=== PATIENT | male | born 1940 | race Caucasian/White ===

== ENCOUNTER 2024-05-28 17:38 | Inpatient (IN) | payer MEDICARE, MEDICAID, SELFPAY ==
[2024-05-28 18:15] VITALS: BP 119/76; PULSE 72; RESP 16; TEMP 36.4; O2SAT 95
--- OUTSIDE RECORDS SUMMARY | 2024-05-28 18:18 | XMS_ITS | Patient Health Record ---
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 Name Role Phone Richard Johnnie Primary Care Provider Alee Melara MD MSc, Mary Unavailable [phone] Allergies Allergen (clinical drug ingredient) Drug/Non Drug Allergy documented on EMR Reaction Allergy Type Onset Date Status amoxicillin Amoxicillin Unknown Drug Allergy Act keri Reason For Referral No Information Medications Medication SIG (Take, Route, Frequency, Duration) Notes Start Date End Date Status Methadone HCl 10 MG 1 tablet Orally Once a day Not-Taking Diclofenac Sodium 1 % as directed Externally Active Baby Aspirin Active Cyanocobalamin 1000 MCG 1 tablet Orally Once a day for 30 day(s) Not-Taking Tylenol Extra Strength 500 MG 1 tablet as needed Orally every 6 hrs Not-Taking Lidocaine 5 % 1 patch remove after 12 hours Externally Once a day Not-Taking Metoprolol Succinate 50 MG 1 capsule Ora lly Once a day for 30 day(s) Active Omeprazole 40 MG 1 capsule 30 minutes before morning meal Orally Once a day for 30 day(s) Active Lovastatin 40 MG 1 tablet with the evening meal Orally Once a day for 30 day(s) Active Meclizine HCl 25 MG 1 tablet as needed Orally every 12 hrs Active oxyCODONE-Acetaminophen 5-325 MG 1 tablet as needed Orally every 6 hrs Active traZODone HCl 100 MG 1 tablet at bedtime Orally Once a day for 30 day(s) Active Valsartan 80 MG 1 tablet Orally Once a day for 30 day(s) Active Social History Alcohol screen Question Answer Notes Did you have a drink containing alcohol in the p ast year? Yes How often did you have a dri nk containing alcohol in the past year? Monthly or less How many drinks did you have on a typical day when you were drinking in the past year? 1 or 2 How often did you have six o r more drinks on one occasion in the past year? Never Points 1 Interpretation Negative Drug Question Answer Notes Have you used drugs other th an those for medical reasons in the past 12 months? Yes Marijuana 6 months ago Problems Problem Type SNOMED Code ICD Code Onset Dates Problem Status W/U Status Risk Notes Problem [id number] Lumbar radiculopathy, chronic (M54.16) Active confirmed Plan Of Treatment Pending Test Test Name Order Date [facility] Profile 02/18/2022 Insurance Providers Payer Name Payer Address Payer Phone Subscriber Number Group Number Insured Name Patient Relationship to Insured Coverage Start Date Coverage End Date MEDICARE NGS [address] [place] [phone] [id number] Lei Betancur Self - patient is the insured [facility] [address] [place], [place] [id number] [phone] [id number] Lei Betancur Self - patient is the insured Medical (General) History Medical History History ICD Code hypertension GERD without esophagitis Hyperlipidemia Prostate cancer chronic bilateral low back pain without sciatica stenosis of carotid artery abdominal aortic aneurysm without ruptur e opioid use gait abnormality B12 deficiency stage 3 chronic kidney disease iron deficiency anemia chronic obstructive pulmonary disease spinal stenosis of lumbar region without neurogenic claudication chronic pain syndrome Surgical History Surgery Date(Month/Year) Nose blockage surgery 2020 Right knee replacement 2012 Left thumb tendon surgery Hospitalization History Reason Date(Month/Year) Catheter placement 02/03/22 Pain medication 01/2022
--- NOTE | 2024-05-28 18:49 | PC.ADMIT ---
Lei was admitted to on 05/28/24 at 18:00 from [facility] ED on a 12B for the treatment of dementia with behavioral disturbance. Upon arrival, skin check/contraband search was completed by this information writer and another RN. He denies suicidal and homicidal thoughts and intent. He is oriented to self and location. He was placed on 5 minute checks for safety and is using a walker for ambulation.
[2024-05-28 19:24] LABS: Alanine Aminotransferase 12 U/L (0-40); Albumin Level 3.9 g/dL (3.5-5.0); Alkaline Phosphatase 98 U/L (39-117); Anion Gap 14 (12-20); Aspartate Amino Transferase 20 U/L (5-37); Bilirubin Total 0.4 mg/dL (0.0-1.0); Blood Urea Nitrogen 14 mg/dL (9-16); Calcium 9.1 mg/dL (8.4-10.2); Carbon Dioxide 30 mmol/L (22-29); Chloride 101 mmol/L (96-108); Estimated Glomerular Filt Rate > 60; Glucose Random 72 mg/dL (60-115); Potassium 4.5 mmol/L (3.3-5.1); Sodium 140 mmol/L (135-145); Total Protein 7.3 g/dL (6.5-8.0)
[2024-05-28] MEDS: Melatonin 3 MG TABLET 6 MG PO (20:46)
[2024-05-29] MEDS: traZODone HCL 50 MG TABLET PO (00:16)
[2024-05-29 08:38] VITALS: BP 137/66; PULSE 67; RESP 16; TEMP 37; O2SAT 95
[2024-05-29] MEDS: Furosemide 20 MG TABLET PO ×2 (08:40→20:04)
[2024-05-29] MEDS: DULoxetine HCl 20 MG CAPSULE.DR PO ×2 (08:40→20:03)
[2024-05-29] MEDS: Lidocaine 4 % Patch ADH..PATCH 1 PATCH TRANSDERMA (08:40)
[2024-05-29] MEDS: Ferrous Sulfate 324 MG TABLET.DR PO (08:40)
[2024-05-29] MEDS: Divalproex Sodium Sprinkles 125 MG CAP.DR.SPR 250 MG PO ×2 (08:40→20:04)
[2024-05-29] MEDS: Tamsulosin HCL 0.4 MG CAPSULE PO (08:40)
[2024-05-29] MEDS: clonazePAM 0.5 MG TABLET PO ×2 (08:41→20:03)
[2024-05-29] MEDS: polyethylene glycoL 3350 17 GM POWD.PACK PO (08:41)
[2024-05-29 08:47] LABS: Estimated Average Glucose 105 mg/dL; Hemoglobin A1C 113.6444 umol/L; Hemoglobin A1c % 5.3 % (<6.0); Total Hemoglobin (HGBA1C) 3272.4593 umol/L
[2024-05-29 09:00] LABS: Cholesterol 132 mg/dL (<200); HDL Cholesterol 24 mg/dL (>40); LDL Cholesterol Calculated 84 mg/dL (<100); Triglycerides 124 mg/dL (<150)
--- NOTE | 2024-05-29 09:03 | P.HPPS_ITS ---
HPI Date of Service: 05/29/24 Chief Complaint: Major neurocognitive d/o Sources of Information: patient interviewed, chart reviewed and crisis/core team assessment reviewed Additional Sources of Information: Earline Whiting [phone] [facility] internet e commerce specialist [phone] [facility] Subjective Notes: Avitia Warning and Section 12B Narrative: Mr. Betancur is an 83 year-old male with hx of dementia who resides at [facility] since 06/2024 (according to his daughter). He was sent via EMS to [facility] ED due to patient presenting with increased inappropriate behaviors towards female residents including attempting to touch them inappropriately. In the ED, labs included CBC with macrocytic anemia (note B12 818), no leukocytosis or leukopenia. CMP without electrolyte abnormality, BUN 14, Cr 1.25, creatinine clearance 57, LFT wnl. TSH 2.87. Folate 22.9. UA was negative for UTI. On the unit, pt reports he knows he is at [facility]. He does not know why he is here. He initially reported he lives alone with one of his sons living close by. When this display card writer mentioned [facility], he did report he was brought here from [facility], but again did not know why. He does know the year, month and date. He is not able to tell this display card writer his medical conditions nor the medications he is on. He denies depression or anxious mood. He denies SI/HI. No signs of psychosis or delusions. He reports he has a headache and neck pain. He denies any other concerns. He is able to tell this display card writer that his HCP is his daughter, Earline (awaiting copy of HCP from [facility] as it was not sent from ED). Collateral information was gathered from his daughter Earline who reports he was diagnosed with dementia last year around February. She reports he had put smoke detector in microwave and seemed more confused and forgetful. She reports he was admitted to a geriatric unit in [place] and ultimately dx with frontotemporal dementia and was placed at [facility]. He apparently has been stable up until this admission. Daughter reports he does not have hx of psychiatric illness. She also denies he had hx of substance use. No prior suicide attempts nor violent behavior. Past Psychiatric History: Inpt: [facility] 02/2023 OP: [address] Medical Evaluation Reviewed: Yes PMFSH Family History: none Social History: Pt originally from [place]. He was twice. He had 3 children from first marriage. He had 2 children second marriage. Second , he does not know when. 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 Highest grade of education- HS. Substance History: None Trauma History: None disclosed. Diagnostics Vital Signs (24Hr): Vital Signs - 24 hr 05/28/24 18:15 05/29/24 08:38 Temperature 97.5 F 98.6 F Pulse Rate 72 67 Respiratory Rate 16 16 Blood Pressure 119/76 137/66 Pulse Oximetry 95 95 Oxygen Delivery Method Room Air Room Air Labs 05/28/24 18:33 Labs: Laboratory Results - last 48 hr 05/28/24 05/29/24 18:33 07:49 Sodium 140 Potassium 4.5 Chloride 101 Carbon Dioxide 30 H Anion Gap 14 BUN 14 Creatinine 1.11 Estim Creat Clear Calc TNP Estimated GFR > 60 Random Glucose 72 Estimat Average Glucose 105 Hemoglobin A1c % 5.3 Calcium 9.1 Total Bilirubin 0.4 AST 20 ALT 12 Alkaline Phosphatase 98 Total Protein 7.3 Albumin 3.9 Triglycerides 124 Cholesterol 132 LDL Cholesterol, Calc 84 HDL Cholesterol 24 L Meds/Allergies Meds Home Medications ?Medication ?Instructions ?Recorded ?Confirmed ?Type atorvastatin 10 mg tablet 10 mg PO BEDTIME 05/28/24 05/28/24 History clonazepam 0.5 mg tablet 0.5 mg PO BID 05/28/24 05/28/24 History divalproex 125 mg capsule,delayed 250 mg PO BID 05/28/24 05/28/24 History release sprinkle (Depakote Sprinkles) duloxetine 20 mg capsule,delayed 20 mg PO BID 05/28/24 05/28/24 History release enoxaparin 40 mg/0.4 mL 40 mg subcut DAILY 05/28/24 05/28/24 History subcutaneous syringe ferrous sulfate 325 mg (65 mg 325 mg PO DAILY 05/28/24 05/28/24 History iron) tablet furosemide 20 mg tablet 20 mg PO BID 05/28/24 05/28/24 History gabapentin 300 mg capsule 600 mg PO BID 05/28/24 05/28/24 History gabapentin 400 mg capsule 800 mg PO BEDTIME 05/28/24 05/28/24 History lidocaine 5 % topical patch 1 patch topical DAILY 05/28/24 05/28/24 History melatonin 3 mg tablet 6 mg PO BEDTIME 05/28/24 05/28/24 History pantoprazole 20 mg tablet,delayed 20 mg PO DAILY 05/28/24 05/28/24 History release polyethylene glycol 3350 17 gram 17 g PO DAILY 05/28/24 05/28/24 History oral powder packet sennosides 8.6 mg tablet (senna) 17.2 mg PO BEDTIME 05/28/24 05/28/24 History tamsulosin 0.4 mg capsule 0.4 mg PO DAILY 05/28/24 05/28/24 History trazodone 50 mg tablet 50 mg PO BEDTIME 05/28/24 05/28/24 History Allergies Allergies Allergy/AdvReac Type Severity Reaction Status Date / Time Unable to Assess Allergy Verified 05/28/24 18:02 Mental Status Exam Mental Status Exam Narrative: Appearance: wearing hospital gown, fair hygiene, arms with tatooes, in NAD Behavior: cooperative Psychomotor: no agitation or retardation, no tremors Speech: mostly clear, normal rate/rhythm/volume, spontaneous TP: mostly linear TC: feeling tired Mood: tired, I have a headache Affect: congruent SI: denies HI: denies VH/AH: none Delusions: none Insight/judgment: impaired x 2. Memory/cog: alert, oriented to month, year, date, but not situation. He can't provide much information about events leading to this admission, nor medical hx. Assessment & Plan Assessment & Plan (1) Frontotemporal dementia: Status: Acute Code(s): G31.09 - Other frontotemporal neurocognitive disorder; F02.80 - Dementia in other diseases classified elsewhere, unspecified severity, without behavioral disturbance, psychotic disturbance, mood disturbance, and anxiety Plan Mr. Betancur is an 83 year-old male with hx of frontotemporal dementia who resides at [facility] in [facility] since 06/2023. He was sent via EMS to [facility] due to increase inappropriate behaviors and boundaries with female residents. Apparently this behaviors have been increasing in the last week. Discussed with daughter continuing medication including depakote, clonazepam. WIll check ammonia level. This display card writer spoke with floor director at [facility] and asked them to fax copy of HCP and [facility]OL[facility]- to update our records. PLAN 1. Admit to S1, currently on sect 12b, once we receive copy of HCP, will do CV by HCP. 2. continue depakote 250mg po BID, will check ammonia. 3. continue clonazepam 0.5mg po BID 4. aftercare planning. 5. OT assessments. Patient educated on: diagnosis and medication risk/benefits Guardian/Caregiver educated on: diagnosis and medication risk/benefits Informed Consent: understands Reason for continued inpatient stay Substantial Risk for: harm to others Statement Statement: I have reviewed the history and physical and performed a pertinent examination on my patient. No changes have occurred unless specified. If the History and Physical was not performed prior to admission, the Hospitalist's service will be consulted for completing the admission physical. Time Spent With Patient Time: Total time managing care of this patient today ____ minutes.
[2024-05-29 09:12] LABS: Thyroid Stimulating Hormone 1.88 uIU/mL (0.32-4.0)
[2024-05-29 09:22] LABS: Vitamin B12 761 pg/mL (200-900)
--- NOTE | 2024-05-29 12:34 | P.CONHOSP_ITS ---
History of Present Illness Data of Consult Service Date: 05/29/24 Requesting physician: Ana Paula Adair Primary Care Provider: Johnnie Ramos MD HPI Reason for consult: Medical H&P 83-year-old male with history of chronic pain disorder, coronary artery disease, GERD, hyperlipidemia, hypertension, history of polio affecting the left foot, history of prostate cancer, history of CVA, orthostatic hypotension and AAA admitted to [facility] from [facility] ED with consult placed to hospitalist service for medical H&P. He is currently feeling well and has no complaints. He is a former smoker with a 120 pack year history who quit in 2011. No other substances. Mildly hypertensive in the ED otherwise vitals stable. Labs in the ED show a mild normocytic anemia with h/h 12.4/38.1%. Renal function normal, lytes normal. UA without evidence of infection. TSH WNL. Review of Systems 2 Review of Systems: General: No fevers, malaise, unintentional weight loss HEENT: No blurred vision, diplopia. 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 Vitamin B12 deficiency Orthostatic hypotension Bilateral lower extremity edema AAA (abdominal aortic aneurysm) GERD (gastroesophageal reflux disease) Prostate cancer Hyperlipidemia Hypertension Vertigo Social History Household Members: None Housing: Prison Do you presently have visiting nurse or other home services: No Patient Tobacco Use Status: Former Tobacco user Tobacco use type: Cigarette Cigarette Packs Per Day: 2 Cigarettes Per Day: 40.0 Years Smoked: 60 Smoked in Last 30 Days: No Use of substances other than those prescribed or required for medical reasons: No Currently Displaying Signs/Symptoms of Drug Intoxication Withdrawal: No Advance Directives: No Advance Directives Information Provided: Yes Do you have thoughts of harming others: None Do you have a plan to hurt others: No Plan Recently lost weight without trying: No Meds Allergies Allergy/AdvReac Type Severity Reaction Status Date / Time Unable to Assess Allergy Verified 05/28/24 18:02 Active Medications: Current Medications Acetaminophen (Acetaminophen 325 Mg Tablet) 650 mg PO Q6H PRN PRN Reason: Headache/Pain, Scale 1-10 Al Hydroxide/Mg Hydroxide (Magnesium Hydrox/Alum Hydrox 30 Ml Oral.Susp) 30 ml PO Q6H PRN PRN Reason: Heartburn/Nausea Atorvastatin Calcium (Atorvastatin Calcium 10 Mg Tablet) 10 mg PO BEDTIME [facility] Last Admin: 05/28/24 20:50 Dose: Not Given Clonazepam (Clonazepam 0.5 Mg Tablet) 0.5 mg PO BID [facility] Last Admin: 05/29/24 08:41 Dose: 0.5 mg Divalproex Sodium (Divalproex Sodium Sprinkles 125 Mg Cap.) 250 mg PO BID [facility] Last Admin: 05/29/24 08:40 Dose: 250 mg Duloxetine HCl (Duloxetine Hcl 20 Mg Capsule.) 20 mg PO BID [facility] Last Admin: 05/29/24 08:40 Dose: 20 mg Ferrous Sulfate (Ferrous Sulfate 324 Mg Tablet.) 324 mg PO DAILY [facility] Last Admin: 05/29/24 08:40 Dose: 324 mg Furosemide (Furosemide 20 Mg Tablet) 20 mg PO BID [facility]; Protocol Last Admin: 05/29/24 08:40 Dose: 20 mg Gabapentin (Gabapentin 400 Mg Capsule) 800 mg PO BEDTIME [facility] Last Admin: 05/28/24 20:51 Dose: Not Given Lidocaine (Lidocaine 4 % Patch Adh..Patch) 1 patch TRANSDERMA DAILY [facility] Last Admin: 05/29/24 08:40 Dose: 1 patch Magnesium Hydroxide (Milk Of Magnesia 30 Ml Oral.Susp) 30 ml PO DAILY PRN PRN Reason: Constipation Melatonin (Melatonin 3 Mg Tablet) 6 mg PO BEDTIME [facility] Last Admin: 05/28/24 20:46 Dose: 6 mg Nicotine Polacrilex (Nicotine Polacrilex 2 Mg Gum) 2 mg BUCCAL Q2H PRN PRN Reason: Nicotine Cravings Polyethylene Glycol (Polyethylene Glycol 3350 17 Gm Powd.Pack) 17 gm PO DAILY [facility] Last Admin: 05/29/24 08:41 Dose: 17 gm Senna (Sennosides 8.6 Mg Tablet) 17.2 mg PO BEDTIME [facility] Last Admin: 05/28/24 20:51 Dose: Not Given Tamsulosin HCl (Tamsulosin Hcl 0.4 Mg Capsule) 0.4 mg PO DAILY [facility] Last Admin: 05/29/24 08:40 Dose: 0.4 mg Trazodone HCl (Trazodone Hcl 50 Mg Tablet) 50 mg PO BEDTIME MRX1 PRN PRN Reason: Insomnia Last Admin: 05/29/24 00:16 Dose: 50 mg Home Medications ?Medication ?Instructions ?Recorded ?Confirmed ?Last Taken ?Type atorvastatin 10 mg tablet 10 mg PO BEDTIME 05/28/24 05/28/24 Unknown History clonazepam 0.5 mg tablet 0.5 mg PO BID 05/28/24 05/28/24 Unknown History divalproex 125 mg capsule,delayed 250 mg PO BID 05/28/24 05/28/24 Unknown History release sprinkle (Depakote Sprinkles) duloxetine 20 mg capsule,delayed 20 mg PO BID 05/28/24 05/28/24 Unknown History release enoxaparin 40 mg/0.4 mL 40 mg subcut DAILY 05/28/24 05/28/24 Unknown History subcutaneous syringe ferrous sulfate 325 mg (65 mg 325 mg PO DAILY 05/28/24 05/28/24 Unknown History iron) tablet furosemide 20 mg tablet 20 mg PO BID 05/28/24 05/28/24 Unknown History gabapentin 300 mg capsule 600 mg PO BID 05/28/24 05/28/24 Unknown History gabapentin 400 mg capsule 800 mg PO BEDTIME 05/28/24 05/28/24 Unknown History lidocaine 5 % topical patch 1 patch topical DAILY 05/28/24 05/28/24 Unknown History melatonin 3 mg tablet 6 mg PO BEDTIME 05/28/24 05/28/24 Unknown History pantoprazole 20 mg tablet,delayed 20 mg PO DAILY 05/28/24 05/28/24 Unknown History release polyethylene glycol 3350 17 gram 17 g PO DAILY 05/28/24 05/28/24 Unknown History oral powder packet sennosides 8.6 mg tablet (senna) 17.2 mg PO BEDTIME 05/28/24 05/28/24 Unknown History tamsulosin 0.4 mg capsule 0.4 mg PO DAILY 05/28/24 05/28/24 Unknown History trazodone 50 mg tablet 50 mg PO BEDTIME 05/28/24 05/28/24 Unknown History Physical Exam 2 Vital Signs and Narrative: Vital Signs: Last Vital Signs Temp 98.6 F 05/29/24 08:38 Pulse 67 05/29/24 08:38 Resp 16 05/29/24 08:38 BP 137/66 05/29/24 08:38 Pulse Ox 95 05/29/24 08:38 O2 Del Method Room Air 05/29/24 08:38 Constitutional - Awake and Alert, No apparent distress Eyes - PERRLA, EOMI Cardiovascular - S1S2, RRR, No edema Respiratory - Normal lung expansion, Normal respiratory effort, No respiratory distress, CTA bilaterally Gastrointestinal - NT / ND; +BS; No rebound or guarding Extremities - no calf tenderness bilaterally, no swelling Musculoskeletal - Normal inspection, normal ROM Skin - Warm/Dry Neurological - Alert & oriented x3, CN II-XII in tact, 5/5 strength BUE and BLE Psychological - Appropriate affect Results Labs 05/28/24 18:33 Labs: Laboratory Results - last 24 hr 05/28/24 05/29/24 18:33 07:49 Anion Gap 14 Estim Creat Clear Calc TNP Estimated GFR > 60 Random Glucose 72 Estimat Average Glucose 105 Hemoglobin A1c % 5.3 Calcium 9.1 Total Bilirubin 0.4 AST 20 ALT 12 Alkaline Phosphatase 98 Total Protein 7.3 Albumin 3.9 Triglycerides 124 Cholesterol 132 LDL Cholesterol, Calc 84 HDL Cholesterol 24 L Vitamin B12 761 TSH 1.88 Assessment and Plan (1) Frontotemporal dementia: Status: Acute (2) Routine medical exam: Status: Acute Plan 83-year-old male with history of chronic pain disorder, coronary artery disease, GERD, hyperlipidemia, hypertension, history of polio affecting the left foot, history of prostate cancer, history of CVA, orthostatic hypotension and AAA admitted to [facility] from [facility] ED with consult placed to hospitalist service for medical H&P. Frontotemporal Dementia Plan per psychiatry BLE edema lasix gerd ppi bph flomax chronic pain disorder gabapentin hld statin PRIMITIVO ferrous sulfate Thank you for allowing me to participate in this consult. Signing off at this time. Please do not hesitate to call for further questions.
[2024-05-29 13:08] LABS: Ammonia 33 umol/L (13-55)
[2024-05-29 20:01] VITALS: BP 151/68; PULSE 73; RESP 16; TEMP 36.9; O2SAT 94
[2024-05-29] MEDS: Gabapentin 400 MG CAPSULE 800 MG PO (20:03)
[2024-05-29 20:04] VITALS: BP 151/68
[2024-05-29] MEDS: Atorvastatin Calcium 10 MG TABLET PO (20:04)
[2024-05-29] MEDS: Melatonin 3 MG TABLET 6 MG PO (20:04)
[2024-05-29] MEDS: Sennosides 8.6 MG TABLET 17.2 MG PO (20:04)
[2024-05-30 06:22] VITALS: BMI 26.9
[2024-05-30 07:57] VITALS: BP 134/64; PULSE 70; RESP 20; TEMP 36.8; O2SAT 96
[2024-05-30] MEDS: clonazePAM 0.5 MG TABLET PO ×2 (07:58→20:23)
[2024-05-30] MEDS: DULoxetine HCl 20 MG CAPSULE.DR PO ×2 (07:58→20:23)
[2024-05-30] MEDS: Divalproex Sodium Sprinkles 125 MG CAP.DR.SPR 250 MG PO ×2 (07:59→20:23)
[2024-05-30] MEDS: Tamsulosin HCL 0.4 MG CAPSULE PO (07:59)
[2024-05-30] MEDS: Furosemide 20 MG TABLET PO ×2 (07:59→20:24)
[2024-05-30] MEDS: Ferrous Sulfate 324 MG TABLET.DR PO (08:00)
[2024-05-30] MEDS: polyethylene glycoL 3350 17 GM POWD.PACK PO (08:05)
[2024-05-30] MEDS: Lidocaine 4 % Patch ADH..PATCH 1 PATCH TRANSDERMA (09:06)
[2024-05-30] MEDS: Acetaminophen 325 MG TABLET 650 MG PO ×2 (09:51→20:43)
--- NOTE | 2024-05-30 13:18 | HO.PSYCHPN ---
Subjective Subjective Date of Service: 05/30/24 Reason For Visit: Major neurocognitive d/o Subjective Notes: Conditional Voluntary Interim History: Pt slept through the night. He reports feeling well. He is taking medications as prescribed. No sexualized nor inappropriate behaviors noted. No SI/HI. He has been mostly in his room, visible for meals. Review of Systems Review of Systems General: No fevers, malaise, unintentional weight loss HEENT: No blurred vision, diplopia. No sore throat, nasal congestion, rhinorrhea, sinus pain, ear pain Cardiovascular: No chest pain, palpitations, or leg edema Respiratory: No shortness of breath, wheezing, cough GI: No abdominal pain, nausea, vomiting, diarrhea, constipation, melena, hematochezia : No dysuria, hematuria, increased urinary frequency, decreased urinary output MSK: No myalgia, back pain Neuro: No headaches, weakness, paresthesias Skin: No rashes or lesions Mental Status Exam Mental Status Exam Narrative: Appearance: wearing hospital gown, fair hygiene, arms with tatooes, in NAD Behavior: cooperative Psychomotor: no agitation or retardation, no tremors Speech: mostly clear, normal rate/rhythm/volume, spontaneous TP: mostly linear TC: feeling tired Mood: tired, I have a headache Affect: congruent SI: denies HI: denies VH/AH: none Delusions: none Insight/judgment: impaired x 2. Memory/cog: alert, oriented to month, year, date, but not situation. He can't provide much information about events leading to this admission, nor medical hx. Diagnostics Vital Signs (24Hr): Vital Signs - 24 hr 05/29/24 20:01 05/29/24 20:04 05/30/24 07:57 Temperature 98.4 F 98.2 F Pulse Rate 73 70 Respiratory Rate 16 20 Blood Pressure 151/68 H 151/68 H 134/64 Pulse Oximetry 94 96 Oxygen Delivery Method Room Air Room Air BMI result Body Mass Index 26.9 Labs 05/28/24 18:33 Labs: Laboratory Results - last 48 hr 05/28/24 05/29/24 05/29/24 18:33 07:49 12:25 Sodium 140 Potassium 4.5 Chloride 101 Carbon Dioxide 30 H Anion Gap 14 BUN 14 Creatinine 1.11 Estim Creat Clear Calc TNP Estimated GFR > 60 Random Glucose 72 Estimat Average Glucose 105 Hemoglobin A1c % 5.3 Calcium 9.1 Total Bilirubin 0.4 AST 20 ALT 12 Alkaline Phosphatase 98 Ammonia 33 Total Protein 7.3 Albumin 3.9 Triglycerides 124 Cholesterol 132 LDL Cholesterol, Calc 84 HDL Cholesterol 24 L Vitamin B12 761 TSH 1.88 Medications Medications Current Medications Acetaminophen (Acetaminophen 325 Mg Tablet) 650 mg PO Q6H PRN PRN Reason: Headache/Pain, Scale 1-10 Last Admin: 05/30/24 09:51 Dose: 650 mg Al Hydroxide/Mg Hydroxide (Magnesium Hydrox/Alum Hydrox 30 Ml Oral.Susp) 30 ml PO Q6H PRN PRN Reason: Heartburn/Nausea Atorvastatin Calcium (Atorvastatin Calcium 10 Mg Tablet) 10 mg PO BEDTIME [facility] Last Admin: 05/29/24 20:04 Dose: 10 mg Clonazepam (Clonazepam 0.5 Mg Tablet) 0.5 mg PO BID [facility] Last Admin: 05/30/24 07:58 Dose: 0.5 mg Divalproex Sodium (Divalproex Sodium Sprinkles 125 Mg Cap.) 250 mg PO BID [facility] Last Admin: 05/30/24 07:59 Dose: 250 mg Duloxetine HCl (Duloxetine Hcl 20 Mg Capsule.) 20 mg PO BID [facility] Last Admin: 05/30/24 07:58 Dose: 20 mg Ferrous Sulfate (Ferrous Sulfate 324 Mg Tablet.) 324 mg PO DAILY [facility] Last Admin: 05/30/24 08:00 Dose: 324 mg Furosemide (Furosemide 20 Mg Tablet) 20 mg PO BID [facility]; Protocol Last Admin: 05/30/24 07:59 Dose: 20 mg Gabapentin (Gabapentin 400 Mg Capsule) 800 mg PO BEDTIME [facility] Last Admin: 05/29/24 20:03 Dose: 800 mg Lidocaine (Lidocaine 4 % Patch Adh..Patch) 1 patch TRANSDERMA DAILY [facility] Last Admin: 05/30/24 09:06 Dose: 1 patch Magnesium Hydroxide (Milk Of Magnesia 30 Ml Oral.Susp) 30 ml PO DAILY PRN PRN Reason: Constipation Melatonin (Melatonin 3 Mg Tablet) 6 mg PO BEDTIME [facility] Last Admin: 05/29/24 20:04 Dose: 6 mg Nicotine Polacrilex (Nicotine Polacrilex 2 Mg Gum) 2 mg BUCCAL Q2H PRN PRN Reason: Nicotine Cravings Polyethylene Glycol (Polyethylene Glycol 3350 17 Gm Powd.Pack) 17 gm PO DAILY [facility] Last Admin: 05/30/24 08:05 Dose: 17 gm Senna (Sennosides 8.6 Mg Tablet) 17.2 mg PO BEDTIME [facility] Last Admin: 05/29/24 20:04 Dose: 17.2 mg Tamsulosin HCl (Tamsulosin Hcl 0.4 Mg Capsule) 0.4 mg PO DAILY [facility] Last Admin: 05/30/24 07:59 Dose: 0.4 mg Trazodone HCl (Trazodone Hcl 50 Mg Tablet) 50 mg PO BEDTIME MRX1 PRN PRN Reason: Insomnia Last Admin: 05/29/24 00:16 Dose: 50 mg Allergies Allergies Allergy/AdvReac Type Severity Reaction Status Date / Time amoxicillin AdvReac Severe Rash Verified 05/30/24 06:08 Assessment & Plan Assessment & Plan (1) Frontotemporal dementia: Status: Acute Code(s): G31.09 - Other frontotemporal neurocognitive disorder; F02.80 - Dementia in other diseases classified elsewhere, unspecified severity, without behavioral disturbance, psychotic disturbance, mood disturbance, and anxiety Plan 83-year-old male with history of chronic pain disorder, coronary artery disease, GERD, hyperlipidemia, hypertension, history of polio affecting the left foot, history of prostate cancer, history of CVA, orthostatic hypotension and AAA admitted to [facility] from [facility] ED with consult placed to hospitalist service for medical H&P. Frontotemporal Dementia Plan per psychiatry BLE edema lasix gerd ppi bph flomax chronic pain disorder gabapentin hld statin PRIMITIVO ferrous sulfate Thank you for allowing me to participate in this consult. Signing off at this time. Please do not hesitate to call for further questions. Reason for continued inpatient stay Substantial Risk for: inability to function Time Spent With Patient Time: Total time managing care of this patient today ____ minutes.
[2024-05-30 20:21] VITALS: BP 153/67; PULSE 72; RESP 16; TEMP 36.4; O2SAT 94
[2024-05-30] MEDS: Gabapentin 400 MG CAPSULE 800 MG PO (20:23)
[2024-05-30 20:24] VITALS: BP 153/67
[2024-05-30] MEDS: Melatonin 3 MG TABLET 6 MG PO (20:24)
[2024-05-30] MEDS: Sennosides 8.6 MG TABLET 17.2 MG PO (20:24)
[2024-05-30] MEDS: Atorvastatin Calcium 10 MG TABLET PO (20:24)
[2024-05-31 07:00] VITALS: BMI 26.8
[2024-05-31 08:00] VITALS: BP 103/48; PULSE 66; RESP 16; TEMP 36.4; O2SAT 96
[2024-05-31] MEDS: Ferrous Sulfate 324 MG TABLET.DR PO (08:25)
[2024-05-31] MEDS: Furosemide 20 MG TABLET PO ×2 (08:25→20:14)
[2024-05-31] MEDS: DULoxetine HCl 20 MG CAPSULE.DR PO ×2 (08:25→20:14)
[2024-05-31] MEDS: clonazePAM 0.5 MG TABLET PO ×2 (08:25→20:15)
[2024-05-31] MEDS: Lidocaine 4 % Patch ADH..PATCH 1 PATCH TRANSDERMA (08:27)
[2024-05-31] MEDS: polyethylene glycoL 3350 17 GM POWD.PACK PO (08:28)
[2024-05-31] MEDS: Tamsulosin HCL 0.4 MG CAPSULE PO (08:46)
[2024-05-31] MEDS: Divalproex Sodium Sprinkles 125 MG CAP.DR.SPR 250 MG PO (08:50)
--- NOTE | 2024-05-31 10:45 | HO.PSYCHPN ---
Subjective Subjective Date of Service: 05/31/24 Reason For Visit: Major neurocognitive d/o Subjective Notes: Conditional Voluntary (signed on 05/31 verbally by invoked HCP) Healthcare Proxy: Yes Interim History: Pt slept through the night. He has been mostly in his room but visible for meals. He reports he is bored. He reports he would like to find a GF. He denies that he inappropriately touched a female at [facility], but does report he is interested in meeting females and potential romantic partner. He denies SI/HI. No inappropriate behaviors noted. Depakote level is low, room to increase dose which I discussed with HCP and she is in agreement. HCP also provided verbal consent to sign CV by HCP. Mental Status Exam Mental Status Exam Narrative: Appearance: wearing hospital gown, fair hygiene, arms with tatooes, in NAD Behavior: cooperative Psychomotor: no agitation or retardation, no tremors Speech: mostly clear, normal rate/rhythm/volume, spontaneous TP: mostly linear TC: feeling tired Mood: tired, I have a headache Affect: congruent SI: denies HI: denies VH/AH: none Delusions: none Insight/judgment: impaired x 2. Memory/cog: alert, oriented to month, year, date, but not situation. He can't provide much information about events leading to this admission, nor medical hx. Diagnostics Vital Signs (24Hr): Vital Signs - 24 hr 05/30/24 20:21 05/30/24 20:24 Temperature 97.6 F Pulse Rate 72 Respiratory Rate 16 Blood Pressure 153/67 H 153/67 H Pulse Oximetry 94 Oxygen Delivery Method Room Air BMI result Body Mass Index 26.9 Labs 05/28/24 18:33 Labs: Laboratory Results - last 48 hr 05/29/24 12:25 Ammonia 33 Medications Medications Current Medications Acetaminophen (Acetaminophen 325 Mg Tablet) 650 mg PO Q6H PRN PRN Reason: Headache/Pain, Scale 1-10 Last Admin: 05/30/24 20:43 Dose: 650 mg Al Hydroxide/Mg Hydroxide (Magnesium Hydrox/Alum Hydrox 30 Ml Oral.Susp) 30 ml PO Q6H PRN PRN Reason: Heartburn/Nausea Atorvastatin Calcium (Atorvastatin Calcium 10 Mg Tablet) 10 mg PO BEDTIME [facility] Last Admin: 05/30/24 20:24 Dose: 10 mg Clonazepam (Clonazepam 0.5 Mg Tablet) 0.5 mg PO BID [facility] Last Admin: 05/31/24 08:25 Dose: 0.5 mg Divalproex Sodium (Divalproex Sodium Sprinkles 125 Mg Cap.) 250 mg PO BID [facility] Last Admin: 05/31/24 08:50 Dose: 250 mg Duloxetine HCl (Duloxetine Hcl 20 Mg Capsule.) 20 mg PO BID [facility] Last Admin: 05/31/24 08:25 Dose: 20 mg Ferrous Sulfate (Ferrous Sulfate 324 Mg Tablet.) 324 mg PO DAILY [facility] Last Admin: 05/31/24 08:25 Dose: 324 mg Furosemide (Furosemide 20 Mg Tablet) 20 mg PO BID [facility]; Protocol Last Admin: 05/31/24 08:25 Dose: 20 mg Gabapentin (Gabapentin 400 Mg Capsule) 800 mg PO BEDTIME [facility] Last Admin: 05/30/24 20:23 Dose: 800 mg Lidocaine (Lidocaine 4 % Patch Adh..Patch) 1 patch TRANSDERMA DAILY [facility] Last Admin: 05/31/24 08:27 Dose: 1 patch Magnesium Hydroxide (Milk Of Magnesia 30 Ml Oral.Susp) 30 ml PO DAILY PRN PRN Reason: Constipation Melatonin (Melatonin 3 Mg Tablet) 6 mg PO BEDTIME [facility] Last Admin: 05/30/24 20:24 Dose: 6 mg Nicotine Polacrilex (Nicotine Polacrilex 2 Mg Gum) 2 mg BUCCAL Q2H PRN PRN Reason: Nicotine Cravings Polyethylene Glycol (Polyethylene Glycol 3350 17 Gm Powd.Pack) 17 gm PO DAILY [facility] Last Admin: 05/31/24 08:28 Dose: 17 gm Senna (Sennosides 8.6 Mg Tablet) 17.2 mg PO BEDTIME [facility] Last Admin: 05/30/24 20:24 Dose: 17.2 mg Tamsulosin HCl (Tamsulosin Hcl 0.4 Mg Capsule) 0.4 mg PO DAILY [facility] Last Admin: 05/31/24 08:46 Dose: 0.4 mg Trazodone HCl (Trazodone Hcl 50 Mg Tablet) 50 mg PO BEDTIME MRX1 PRN PRN Reason: Insomnia Last Admin: 05/29/24 00:16 Dose: 50 mg Allergies Allergies Allergy/AdvReac Type Severity Reaction Status Date / Time amoxicillin AdvReac Severe Rash Verified 05/30/24 06:08 Assessment & Plan Assessment & Plan (1) Frontotemporal dementia: Status: Acute Code(s): G31.09 - Other frontotemporal neurocognitive disorder; F02.80 - Dementia in other diseases classified elsewhere, unspecified severity, without behavioral disturbance, psychotic disturbance, mood disturbance, and anxiety Plan Mr. Betancur is an 83 year-old male with hx of frontotemporal dementia who resides at [facility] in [facility] since 06/2023. He was sent via EMS to [facility] due to increase inappropriate behaviors and boundaries with female residents. Apparently this behaviors have been increasing in the last week. Discussed with daughter continuing medication including depakote, clonazepam. He received HCP and invocation paperwork. We also obtained copy of MOLST and updated code to DNR/DNI. 05/31 ammonia levels wnl. Increase depakote from 250mg po BID, to 500mg po BID. Verbal consent obtained for CV by HCP. Reason for continued inpatient stay Substantial Risk for: inability to function Time Spent With Patient Time: Total time managing care of this patient today ____ minutes.
[2024-05-31 20:00] VITALS: BP 134/64; PULSE 76; RESP 16; TEMP 36.5; O2SAT 95
[2024-05-31] MEDS: Acetaminophen 325 MG TABLET 650 MG PO (20:13)
[2024-05-31] MEDS: Magnesium Hydrox/Alum Hydrox 30 ML ORAL.SUSP PO (20:13)
[2024-05-31 20:14] VITALS: BP 134/64
[2024-05-31] MEDS: Melatonin 3 MG TABLET 6 MG PO (20:14)
[2024-05-31] MEDS: traZODone HCL 50 MG TABLET PO (20:14)
[2024-05-31] MEDS: Sennosides 8.6 MG TABLET 17.2 MG PO (20:14)
[2024-05-31] MEDS: Gabapentin 400 MG CAPSULE 800 MG PO (20:14)
[2024-05-31] MEDS: Divalproex Sodium Sprinkles 125 MG CAP.DR.SPR 500 MG PO (20:15)
[2024-05-31] MEDS: Atorvastatin Calcium 10 MG TABLET PO (20:15)
[2024-06-01 08:00] VITALS: BP 112/57; PULSE 72; RESP 18; TEMP 36.2; O2SAT 92
[2024-06-01] MEDS: Tamsulosin HCL 0.4 MG CAPSULE PO (08:53)
[2024-06-01] MEDS: Furosemide 20 MG TABLET PO ×2 (08:53→20:40)
[2024-06-01] MEDS: clonazePAM 0.5 MG TABLET PO ×2 (08:53→20:41)
[2024-06-01] MEDS: Ferrous Sulfate 324 MG TABLET.DR PO (08:53)
[2024-06-01] MEDS: DULoxetine HCl 20 MG CAPSULE.DR PO ×2 (08:54→20:41)
[2024-06-01] MEDS: Divalproex Sodium Sprinkles 125 MG CAP.DR.SPR 500 MG PO ×2 (08:54→20:41)
[2024-06-01] MEDS: Lidocaine 4 % Patch ADH..PATCH 1 PATCH TRANSDERMA (08:57)
[2024-06-01] MEDS: polyethylene glycoL 3350 17 GM POWD.PACK PO (08:57)
--- NOTE | 2024-06-01 09:14 | P.PNPSI_ITS ---
Subjective Subjective Date of Service: 06/01/24 Reason For Visit: Major neurocognitive d/o Subjective Notes: Conditional Voluntary Healthcare Proxy: Yes Interim History: Pt slept through the night. He has been mostly in his room but visible for meals. He reports he is doing well He reports he would like to find a GF. He denies SI/HI. No inappropriate sexualized behaviors noted. He is eating well. VS stable. Review of Systems Review of Systems General: No fevers, malaise, unintentional weight loss HEENT: No blurred vision, diplopia. No sore throat, nasal congestion, rhinorrhea, sinus pain, ear pain Cardiovascular: No chest pain, palpitations, or leg edema Respiratory: No shortness of breath, wheezing, cough GI: No abdominal pain, nausea, vomiting, diarrhea, constipation, melena, hematochezia : No dysuria, hematuria, increased urinary frequency, decreased urinary output MSK: No myalgia, back pain Neuro: No headaches, weakness, paresthesias Skin: No rashes or lesions Mental Status Exam Mental Status Exam Narrative: Appearance: wearing hospital gown, fair hygiene, arms with tatooes, in NAD Behavior: cooperative Psychomotor: no agitation or retardation, no tremors Speech: mostly clear, normal rate/rhythm/volume, spontaneous TP: mostly linear TC: feeling tired Mood: tired, I have a headache Affect: congruent SI: denies HI: denies VH/AH: none Delusions: none Insight/judgment: impaired x 2. Memory/cog: alert, oriented to month, year, date, but not situation. He can't provide much information about events leading to this admission, nor medical hx. Diagnostics Vital Signs (24Hr): Vital Signs - 24 hr 05/31/24 20:00 05/31/24 20:14 Temperature 97.7 F Pulse Rate 76 Respiratory Rate 16 Blood Pressure 134/64 134/64 Pulse Oximetry 95 Oxygen Delivery Method Room Air BMI result Body Mass Index 26.9 Labs 05/28/24 18:33 Medications Medications Current Medications Acetaminophen (Acetaminophen 325 Mg Tablet) 650 mg PO Q6H PRN PRN Reason: Headache/Pain, Scale 1-10 Last Admin: 05/31/24 20:13 Dose: 650 mg Al Hydroxide/Mg Hydroxide (Magnesium Hydrox/Alum Hydrox 30 Ml Oral.Susp) 30 ml PO Q6H PRN PRN Reason: Heartburn/Nausea Last Admin: 05/31/24 20:13 Dose: 30 ml Atorvastatin Calcium (Atorvastatin Calcium 10 Mg Tablet) 10 mg PO BEDTIME [facility] Last Admin: 05/31/24 20:15 Dose: 10 mg Clonazepam (Clonazepam 0.5 Mg Tablet) 0.5 mg PO BID [facility] Last Admin: 06/01/24 08:53 Dose: 0.5 mg Divalproex Sodium (Divalproex Sodium Sprinkles 125 Mg Cap..Spr) 500 mg PO BID [facility] Last Admin: 06/01/24 08:54 Dose: 500 mg Duloxetine HCl (Duloxetine Hcl 20 Mg Capsule.) 20 mg PO BID [facility] Last Admin: 06/01/24 08:54 Dose: 20 mg Ferrous Sulfate (Ferrous Sulfate 324 Mg Tablet.) 324 mg PO DAILY [facility] Last Admin: 06/01/24 08:53 Dose: 324 mg Furosemide (Furosemide 20 Mg Tablet) 20 mg PO BID [facility]; Protocol Last Admin: 06/01/24 08:53 Dose: 20 mg Gabapentin (Gabapentin 400 Mg Capsule) 800 mg PO BEDTIME [facility] Last Admin: 05/31/24 20:14 Dose: 800 mg Lidocaine (Lidocaine 4 % Patch Adh..Patch) 1 patch TRANSDERMA DAILY [facility] Last Admin: 06/01/24 08:57 Dose: 1 patch Magnesium Hydroxide (Milk Of Magnesia 30 Ml Oral.Susp) 30 ml PO DAILY PRN PRN Reason: Constipation Melatonin (Melatonin 3 Mg Tablet) 6 mg PO BEDTIME [facility] Last Admin: 05/31/24 20:14 Dose: 6 mg Nicotine Polacrilex (Nicotine Polacrilex 2 Mg Gum) 2 mg BUCCAL Q2H PRN PRN Reason: Nicotine Cravings Polyethylene Glycol (Polyethylene Glycol 3350 17 Gm Powd.Pack) 17 gm PO DAILY [facility] Last Admin: 06/01/24 08:57 Dose: 17 gm Senna (Sennosides 8.6 Mg Tablet) 17.2 mg PO BEDTIME [facility] Last Admin: 05/31/24 20:14 Dose: 17.2 mg Tamsulosin HCl (Tamsulosin Hcl 0.4 Mg Capsule) 0.4 mg PO DAILY [facility] Last Admin: 06/01/24 08:53 Dose: 0.4 mg Trazodone HCl (Trazodone Hcl 50 Mg Tablet) 50 mg PO BEDTIME MRX1 PRN PRN Reason: Insomnia Last Admin: 05/31/24 20:14 Dose: 50 mg Allergies Allergies Allergy/AdvReac Type Severity Reaction Status Date / Time amoxicillin AdvReac Severe Rash Verified 05/30/24 06:08 Assessment & Plan Assessment & Plan (1) Frontotemporal dementia: Status: Acute Code(s): G31.09 - Other frontotemporal neurocognitive disorder; F02.80 - Dementia in other diseases classified elsewhere, unspecified severity, without behavioral disturbance, psychotic disturbance, mood disturbance, and anxiety Plan Mr. Betancur is an 83 year-old male with hx of frontotemporal dementia who resides at [facility] since 06/2023. He was sent via EMS to [facility] due to increase inappropriate behaviors and boundaries with female residents. Apparently this behaviors have been increasing in the last week. Discussed with daughter continuing medication including depakote, clonazepam. He received HCP and invocation paperwork. We also obtained copy of MOLST and updated code to DNR/DNI. 05/31 ammonia levels wnl. Increase depakote from 250mg po BID, to 500mg po BID. Verbal consent obtained for CV by HCP. 06/01 continue tx. Reason for continued inpatient stay Substantial Risk for: inability to function Time Spent With Patient Time: Total time managing care of this patient today ____ minutes.
[2024-06-01 20:00] VITALS: BP 115/56; PULSE 87; RESP 18; TEMP 36.4; O2SAT 95
[2024-06-01] MEDS: Gabapentin 400 MG CAPSULE 800 MG PO (20:40)
[2024-06-01] MEDS: Atorvastatin Calcium 10 MG TABLET PO (20:40)
[2024-06-01] MEDS: Melatonin 3 MG TABLET 6 MG PO (20:40)
[2024-06-01] MEDS: Sennosides 8.6 MG TABLET 17.2 MG PO (20:40)
[2024-06-02] MEDS: traZODone HCL 50 MG TABLET PO (02:55)
[2024-06-02 08:00] VITALS: BP 125/72; PULSE 77; RESP 16; TEMP 36.4; O2SAT 98
[2024-06-02] MEDS: polyethylene glycoL 3350 17 GM POWD.PACK PO (09:10)
[2024-06-02] MEDS: Divalproex Sodium Sprinkles 125 MG CAP.DR.SPR 500 MG PO ×2 (09:11→20:16)
[2024-06-02] MEDS: DULoxetine HCl 20 MG CAPSULE.DR PO ×2 (09:11→20:16)
[2024-06-02] MEDS: Lidocaine 4 % Patch ADH..PATCH 1 PATCH TRANSDERMA (09:12)
[2024-06-02] MEDS: clonazePAM 0.5 MG TABLET PO ×2 (09:12→20:17)
[2024-06-02] MEDS: Ferrous Sulfate 324 MG TABLET.DR PO (09:12)
[2024-06-02] MEDS: Tamsulosin HCL 0.4 MG CAPSULE PO (09:12)
[2024-06-02] MEDS: Furosemide 20 MG TABLET PO ×2 (09:12→20:16)
--- NOTE | 2024-06-02 09:36 | P.PNPSI_ITS ---
Subjective Subjective Date of Service: 06/02/24 Reason For Visit: Major neurocognitive d/o Interim History: Pt seen, discussed with team. Sleeping when approached. Awakens easily, spontaneous smile, reports he is well, but tired and returns to resting. Team report some evening sundowning (confusion), medicine compliance and no behavioral dyscontrol. Medication Compliance: Yes Review of Systems Review of Systems I feel fine Mental Status Exam Mental Status Exam Patient Appearance: Appropriate Patient Orientation: Person Level of Consciousness: Alert Patient Behavior: Asleep (initially, awakens easily) and Good Eye Contact Mood Description: Withdrawn Affect Description: Withdrawn Patient Cognition Impaired: Yes Speech Pattern: Spontaneous Speech Judgement: Poor Diagnostics Vital Signs (24Hr): Vital Signs - 24 hr 06/01/24 20:00 Temperature 97.6 F Pulse Rate 87 Respiratory Rate 18 Blood Pressure 115/56 L Pulse Oximetry 95 Oxygen Delivery Method Room Air BMI result Body Mass Index 26.8 Labs 05/28/24 18:33 Medications Medications Current Medications Acetaminophen (Acetaminophen 325 Mg Tablet) 650 mg PO Q6H PRN PRN Reason: Headache/Pain, Scale 1-10 Last Admin: 05/31/24 20:13 Dose: 650 mg Al Hydroxide/Mg Hydroxide (Magnesium Hydrox/Alum Hydrox 30 Ml Oral.Susp) 30 ml PO Q6H PRN PRN Reason: Heartburn/Nausea Last Admin: 05/31/24 20:13 Dose: 30 ml Atorvastatin Calcium (Atorvastatin Calcium 10 Mg Tablet) 10 mg PO BEDTIME [facility] Last Admin: 06/01/24 20:40 Dose: 10 mg Clonazepam (Clonazepam 0.5 Mg Tablet) 0.5 mg PO BID [facility] Last Admin: 06/02/24 09:12 Dose: 0.5 mg Divalproex Sodium (Divalproex Sodium Sprinkles 125 Mg Cap.) 500 mg PO BID [facility] Last Admin: 06/02/24 09:11 Dose: 500 mg Duloxetine HCl (Duloxetine Hcl 20 Mg Capsule.) 20 mg PO BID [facility] Last Admin: 06/02/24 09:11 Dose: 20 mg Ferrous Sulfate (Ferrous Sulfate 324 Mg Tablet.) 324 mg PO DAILY [facility] Last Admin: 06/02/24 09:12 Dose: 324 mg Furosemide (Furosemide 20 Mg Tablet) 20 mg PO BID [facility]; Protocol Last Admin: 06/02/24 09:12 Dose: 20 mg Gabapentin (Gabapentin 400 Mg Capsule) 800 mg PO BEDTIME [facility] Last Admin: 06/01/24 20:40 Dose: 800 mg Lidocaine (Lidocaine 4 % Patch Adh..Patch) 1 patch TRANSDERMA DAILY [facility] Last Admin: 06/02/24 09:12 Dose: 1 patch Magnesium Hydroxide (Milk Of Magnesia 30 Ml Oral.Susp) 30 ml PO DAILY PRN PRN Reason: Constipation Melatonin (Melatonin 3 Mg Tablet) 6 mg PO BEDTIME [facility] Last Admin: 06/01/24 20:40 Dose: 6 mg Nicotine Polacrilex (Nicotine Polacrilex 2 Mg Gum) 2 mg BUCCAL Q2H PRN PRN Reason: Nicotine Cravings Polyethylene Glycol (Polyethylene Glycol 3350 17 Gm Powd.Pack) 17 gm PO DAILY [facility] Last Admin: 06/02/24 09:10 Dose: 17 gm Senna (Sennosides 8.6 Mg Tablet) 17.2 mg PO BEDTIME [facility] Last Admin: 06/01/24 20:40 Dose: 17.2 mg Tamsulosin HCl (Tamsulosin Hcl 0.4 Mg Capsule) 0.4 mg PO DAILY [facility] Last Admin: 06/02/24 09:12 Dose: 0.4 mg Trazodone HCl (Trazodone Hcl 50 Mg Tablet) 50 mg PO BEDTIME MRX1 PRN PRN Reason: Insomnia Last Admin: 06/02/24 02:55 Dose: 50 mg Allergies Allergies Allergy/AdvReac Type Severity Reaction Status Date / Time amoxicillin AdvReac Severe Rash Verified 05/30/24 06:08 Assessment & Plan Assessment & Plan (1) Frontotemporal dementia: Status: Acute Code(s): G31.09 - Other frontotemporal neurocognitive disorder; F02.80 - Dementia in other diseases classified elsewhere, unspecified severity, without behavioral disturbance, psychotic disturbance, mood disturbance, and anxiety Plan Mr. Betancur is an 83 year-old male with hx of frontotemporal dementia who resides at [facility] in [facility] since 06/2023. He was sent via EMS to [facility] due to increase inappropriate behaviors and boundaries with female residents. Apparently this behaviors have been increasing in the last week. Discussed with daughter continuing medication including depakote, clonazepam. He received HCP and invocation paperwork. We also obtained copy of MOLST and updated code to DNR/DNI. 4/3 ammonia levels wnl. Increase depakote from 250mg po BID, to 500mg po BID. Verbal consent obtained for CV by HCP. 06/01 continue tx. 06/02 continue tx Reason for continued inpatient stay Substantial Risk for: rapid decompensation and med/psych decompensation Time Spent With Patient Time: Total time managing care of this patient today ____ minutes.
[2024-06-02 19:45] VITALS: BP 147/88; PULSE 71; RESP 18; TEMP 36.6; O2SAT 95
[2024-06-02] MEDS: Atorvastatin Calcium 10 MG TABLET PO (20:16)
[2024-06-02] MEDS: Gabapentin 400 MG CAPSULE 800 MG PO (20:16)
[2024-06-02] MEDS: Melatonin 3 MG TABLET 6 MG PO (20:16)
[2024-06-02] MEDS: Sennosides 8.6 MG TABLET 17.2 MG PO (20:16)
[2024-06-03 08:00] VITALS: BP 124/61; PULSE 72; RESP 16; TEMP 36.7; O2SAT 95
[2024-06-03] MEDS: polyethylene glycoL 3350 17 GM POWD.PACK PO (08:25)
[2024-06-03] MEDS: Lidocaine 4 % Patch ADH..PATCH 1 PATCH TRANSDERMA (08:26)
[2024-06-03] MEDS: DULoxetine HCl 20 MG CAPSULE.DR PO ×2 (08:26→20:22)
[2024-06-03] MEDS: Furosemide 20 MG TABLET PO ×2 (08:26→20:23)
[2024-06-03] MEDS: Divalproex Sodium Sprinkles 125 MG CAP.DR.SPR 500 MG PO ×2 (08:26→20:22)
[2024-06-03] MEDS: Ferrous Sulfate 324 MG TABLET.DR PO (08:26)
[2024-06-03] MEDS: clonazePAM 0.5 MG TABLET PO ×2 (08:26→20:23)
[2024-06-03] MEDS: Tamsulosin HCL 0.4 MG CAPSULE PO (08:26)
--- NOTE | 2024-06-03 09:24 | HO.PSYCHPN ---
Subjective Subjective Date of Service: 06/03/24 Reason For Visit: Major neurocognitive d/o Interim History: Today: Appears unkempt, long hair. Adentulous. Found entering his room and getting into bed. Appears flat, depressed, preoccupied. Reports having a headache and chronic neck pain. He just went to take some Tylenol and is hoping this alleviates the pain. Denies any fall or injury. Says it is a chronic problem. Denies fever, chills, dizziness, SOB, CP, N/V/D. Mood is alright . Presents with some anxiety, minimally engaged, paucity of thought content. He plans to rest for a while he says. Denies any hopelessness or SI. Denies AVH. Tuesday: Pt seen, discussed with team. Sleeping when approached. Awakens easily, spontaneous smile, reports he is well, but tired and returns to resting. Team report some evening owning (confusion), medicine compliance and no behavioral dyscontrol. Review of Systems Review of Systems I feel fine Mental Status Exam Mental Status Exam Narrative: Appearance: wearing hospital gown, fair hygiene, arms with tatooes, in NAD Behavior: cooperative Psychomotor: no agitation or retardation, no tremors Speech: mostly clear, normal rate/rhythm/volume, spontaneous TP: mostly linear TC: feeling tired Mood: tired, I have a headache Affect: congruent SI: denies HI: denies VH/AH: none Delusions: none Insight/judgment: impaired x 2. Memory/cog: alert, oriented to month, year, date, but not situation. He can't provide much information about events leading to this admission, nor medical hx. Patient Appearance: Appropriate Patient Orientation: Person Level of Consciousness: Alert Patient Behavior: Asleep (initially, awakens easily) and Good Eye Contact Mood Description: Withdrawn Affect Description: Withdrawn Patient Cognition Impaired: Yes Speech Pattern: Spontaneous Speech Diagnostics Vital Signs (24Hr): Vital Signs - 24 hr 06/02/24 19:45 06/03/24 08:00 Temperature 97.8 F 98.1 F Pulse Rate 71 72 Respiratory Rate 18 16 Blood Pressure 147/88 H 124/61 Pulse Oximetry 95 95 Oxygen Delivery Method Room Air Room Air BMI result Body Mass Index 26.8 Labs 05/28/24 18:33 Medications Medications Current Medications Acetaminophen (Acetaminophen 325 Mg Tablet) 650 mg PO Q6H PRN PRN Reason: Headache/Pain, Scale 1-10 Last Admin: 05/31/24 20:13 Dose: 650 mg Al Hydroxide/Mg Hydroxide (Magnesium Hydrox/Alum Hydrox 30 Ml Oral.Susp) 30 ml PO Q6H PRN PRN Reason: Heartburn/Nausea Last Admin: 05/31/24 20:13 Dose: 30 ml Atorvastatin Calcium (Atorvastatin Calcium 10 Mg Tablet) 10 mg PO BEDTIME [facility] Last Admin: 06/02/24 20:16 Dose: 10 mg Clonazepam (Clonazepam 0.5 Mg Tablet) 0.5 mg PO BID [facility] Last Admin: 06/03/24 08:26 Dose: 0.5 mg Divalproex Sodium (Divalproex Sodium Sprinkles 125 Mg Cap.) 500 mg PO BID [facility] Last Admin: 06/03/24 08:26 Dose: 500 mg Duloxetine HCl (Duloxetine Hcl 20 Mg Capsule.) 20 mg PO BID [facility] Last Admin: 06/03/24 08:26 Dose: 20 mg Ferrous Sulfate (Ferrous Sulfate 324 Mg Tablet.) 324 mg PO DAILY [facility] Last Admin: 06/03/24 08:26 Dose: 324 mg Furosemide (Furosemide 20 Mg Tablet) 20 mg PO BID [facility]; Protocol Last Admin: 06/03/24 08:26 Dose: 20 mg Gabapentin (Gabapentin 400 Mg Capsule) 800 mg PO BEDTIME [facility] Last Admin: 06/02/24 20:16 Dose: 800 mg Lidocaine (Lidocaine 4 % Patch Adh..Patch) 1 patch TRANSDERMA DAILY [facility] Last Admin: 06/03/24 08:26 Dose: 1 patch Magnesium Hydroxide (Milk Of Magnesia 30 Ml Oral.Susp) 30 ml PO DAILY PRN PRN Reason: Constipation Melatonin (Melatonin 3 Mg Tablet) 6 mg PO BEDTIME [facility] Last Admin: 06/02/24 20:16 Dose: 6 mg Nicotine Polacrilex (Nicotine Polacrilex 2 Mg Gum) 2 mg BUCCAL Q2H PRN PRN Reason: Nicotine Cravings Polyethylene Glycol (Polyethylene Glycol 3350 17 Gm Powd.Pack) 17 gm PO DAILY [facility] Last Admin: 06/03/24 08:25 Dose: 17 gm Senna (Sennosides 8.6 Mg Tablet) 17.2 mg PO BEDTIME [facility] Last Admin: 06/02/24 20:16 Dose: 17.2 mg Tamsulosin HCl (Tamsulosin Hcl 0.4 Mg Capsule) 0.4 mg PO DAILY [facility] Last Admin: 06/03/24 08:26 Dose: 0.4 mg Trazodone HCl (Trazodone Hcl 50 Mg Tablet) 50 mg PO BEDTIME MRX1 PRN PRN Reason: Insomnia Last Admin: 06/02/24 02:55 Dose: 50 mg Allergies Allergies Allergy/AdvReac Type Severity Reaction Status Date / Time amoxicillin AdvReac Severe Rash Verified 05/30/24 06:08 Assessment & Plan Assessment & Plan (1) Frontotemporal dementia: Status: Acute Code(s): G31.09 - Other frontotemporal neurocognitive disorder; F02.80 - Dementia in other diseases classified elsewhere, unspecified severity, without behavioral disturbance, psychotic disturbance, mood disturbance, and anxiety Plan Mr. Betancur is an 83 year-old male with hx of frontotemporal dementia who resides at [facility] in [facility] since 06/2023. He was sent via EMS to [facility] due to increase inappropriate behaviors and boundaries with female residents. Apparently this behaviors have been increasing in the last week. Discussed with daughter continuing medication including depakote, clonazepam. He received HCP and invocation paperwork. We also obtained copy of MOLST and updated code to DNR/DNI. 05/31 ammonia levels wnl. Increase depakote from 250mg po BID, to 500mg po BID. Verbal consent obtained for CV by HCP. 06/01 continue tx. 06/02 continue tx 06/03 continue tx Reason for continued inpatient stay Substantial Risk for: med/psych decompensation Time Spent With Patient Time: Total time managing care of this patient today ____ minutes.
[2024-06-03] MEDS: Acetaminophen 325 MG TABLET 650 MG PO (16:58)
[2024-06-03 20:00] VITALS: BP 149/69; RESP 16; TEMP 36.9; O2SAT 95
[2024-06-03] MEDS: Gabapentin 400 MG CAPSULE 800 MG PO (20:22)
[2024-06-03] MEDS: Melatonin 3 MG TABLET 6 MG PO (20:23)
[2024-06-03] MEDS: Atorvastatin Calcium 10 MG TABLET PO (20:23)
[2024-06-03] MEDS: Sennosides 8.6 MG TABLET 17.2 MG PO (20:23)
[2024-06-04 08:00] VITALS: BP 115/72; PULSE 79; RESP 18; TEMP 36.5; O2SAT 97
--- NOTE | 2024-06-04 08:32 | HO.PSYCHPN ---
Subjective Subjective Date of Service: 06/04/24 Reason For Visit: Major neurocognitive d/o Subjective Notes: Section 7 Interim History: Pt slept through the night. He reports feeling tired and states that he was bored all weekend long. No reported inappropriate sexual behaviors with peers or staff. He denies SI/HI. He is taking medications as prescribed. plan for dc this week. Review of Systems Review of Systems I feel fine Mental Status Exam Mental Status Exam Narrative: Appearance: wearing hospital gown, fair hygiene, arms with tatooes, in NAD Behavior: cooperative Psychomotor: no agitation or retardation, no tremors Speech: mostly clear, normal rate/rhythm/volume, spontaneous TP: mostly linear TC: feeling tired Mood: tired, I have a headache Affect: congruent SI: denies HI: denies VH/AH: none Delusions: none Insight/judgment: impaired x 2. Memory/cog: alert, oriented to month, year, date, but not situation. He can't provide much information about events leading to this admission, nor medical hx. Patient Appearance: Appropriate Patient Orientation: Person Level of Consciousness: Alert Patient Behavior: Asleep (initially, awakens easily) and Good Eye Contact Mood Description: Withdrawn Affect Description: Withdrawn Patient Cognition Impaired: Yes Speech Pattern: Spontaneous Speech Diagnostics Vital Signs (24Hr): Vital Signs - 24 hr 06/03/24 20:00 Temperature 98.4 F Respiratory Rate 16 Blood Pressure 149/69 H Pulse Oximetry 95 Oxygen Delivery Method Room Air BMI result Body Mass Index 26.8 Labs 05/28/24 18:33 Medications Medications Current Medications Acetaminophen (Acetaminophen 325 Mg Tablet) 650 mg PO Q6H PRN PRN Reason: Headache/Pain, Scale 1-10 Last Admin: 06/03/24 16:58 Dose: 650 mg Al Hydroxide/Mg Hydroxide (Magnesium Hydrox/Alum Hydrox 30 Ml Oral.Susp) 30 ml PO Q6H PRN PRN Reason: Heartburn/Nausea Last Admin: 05/31/24 20:13 Dose: 30 ml Atorvastatin Calcium (Atorvastatin Calcium 10 Mg Tablet) 10 mg PO BEDTIME [facility] Last Admin: 06/03/24 20:23 Dose: 10 mg Clonazepam (Clonazepam 0.5 Mg Tablet) 0.5 mg PO BID [facility] Last Admin: 06/03/24 20:23 Dose: 0.5 mg Divalproex Sodium (Divalproex Sodium Sprinkles 125 Mg Cap.Spr) 500 mg PO BID [facility] Last Admin: 06/03/24 20:22 Dose: 500 mg Duloxetine HCl (Duloxetine Hcl 20 Mg Capsule.) 20 mg PO BID [facility] Last Admin: 06/03/24 20:22 Dose: 20 mg Ferrous Sulfate (Ferrous Sulfate 324 Mg Tablet.) 324 mg PO DAILY [facility] Last Admin: 06/03/24 08:26 Dose: 324 mg Furosemide (Furosemide 20 Mg Tablet) 20 mg PO BID [facility]; Protocol Last Admin: 06/03/24 20:23 Dose: 20 mg Gabapentin (Gabapentin 400 Mg Capsule) 800 mg PO BEDTIME [facility] Last Admin: 06/03/24 20:22 Dose: 800 mg Lidocaine (Lidocaine 4 % Patch Adh..Patch) 1 patch TRANSDERMA DAILY [facility] Last Admin: 06/03/24 08:26 Dose: 1 patch Magnesium Hydroxide (Milk Of Magnesia 30 Ml Oral.Susp) 30 ml PO DAILY PRN PRN Reason: Constipation Melatonin (Melatonin 3 Mg Tablet) 6 mg PO BEDTIME [facility] Last Admin: 06/03/24 20:23 Dose: 6 mg Nicotine Polacrilex (Nicotine Polacrilex 2 Mg Gum) 2 mg BUCCAL Q2H PRN PRN Reason: Nicotine Cravings Polyethylene Glycol (Polyethylene Glycol 3350 17 Gm Powd.Pack) 17 gm PO DAILY [facility] Last Admin: 06/03/24 08:25 Dose: 17 gm Senna (Sennosides 8.6 Mg Tablet) 17.2 mg PO BEDTIME [facility] Last Admin: 06/03/24 20:23 Dose: 17.2 mg Tamsulosin HCl (Tamsulosin Hcl 0.4 Mg Capsule) 0.4 mg PO DAILY [facility] Last Admin: 06/03/24 08:26 Dose: 0.4 mg Trazodone HCl (Trazodone Hcl 50 Mg Tablet) 50 mg PO BEDTIME MRX1 PRN PRN Reason: Insomnia Last Admin: 06/02/24 02:55 Dose: 50 mg Allergies Allergies Allergy/AdvReac Type Severity Reaction Status Date / Time amoxicillin AdvReac Severe Rash Verified 05/30/24 06:08 Assessment & Plan Assessment & Plan (1) Frontotemporal dementia: Status: Acute Code(s): G31.09 - Other frontotemporal neurocognitive disorder; F02.80 - Dementia in other diseases classified elsewhere, unspecified severity, without behavioral disturbance, psychotic disturbance, mood disturbance, and anxiety Plan Mr. Betancur is an 83 year-old male with hx of frontotemporal dementia who resides at [facility] in [facility] since 06/2023. He was sent via EMS to [facility] due to increase inappropriate behaviors and boundaries with female residents. Apparently this behaviors have been increasing in the last week. Discussed with daughter continuing medication including depakote, clonazepam. He received HCP and invocation paperwork. We also obtained copy of MOLST and updated code to DNR/DNI. 05/31 ammonia levels wnl. Increase depakote from 250mg po BID, to 500mg po BID. Verbal consent obtained for CV by HCP. 06/01 continue tx. 06/02 continue tx 06/03 continue tx 06/04 continue tx. will check depakote and ammonia level on 06/06 Reason for continued inpatient stay Substantial Risk for: inability to function Time Spent With Patient Time: Total time managing care of this patient today ____ minutes.
[2024-06-04] MEDS: Lidocaine 4 % Patch ADH..PATCH 1 PATCH TRANSDERMA (09:15)
[2024-06-04 09:18] VITALS: BP 115/72
[2024-06-04] MEDS: Divalproex Sodium Sprinkles 125 MG CAP.DR.SPR 500 MG PO ×2 (09:18→20:22)
[2024-06-04] MEDS: polyethylene glycoL 3350 17 GM POWD.PACK PO (09:18)
[2024-06-04] MEDS: Furosemide 20 MG TABLET PO ×2 (09:18→20:22)
[2024-06-04] MEDS: DULoxetine HCl 20 MG CAPSULE.DR PO ×2 (09:19→20:22)
[2024-06-04] MEDS: Ferrous Sulfate 324 MG TABLET.DR PO (09:19)
[2024-06-04] MEDS: Tamsulosin HCL 0.4 MG CAPSULE PO (09:19)
[2024-06-04] MEDS: clonazePAM 0.5 MG TABLET PO ×2 (09:19→20:22)
[2024-06-04 20:00] VITALS: BP 129/60; PULSE 81; TEMP 36.6; O2SAT 94
[2024-06-04] MEDS: Atorvastatin Calcium 10 MG TABLET PO (20:20)
[2024-06-04] MEDS: Melatonin 3 MG TABLET 6 MG PO (20:21)
[2024-06-04] MEDS: Sennosides 8.6 MG TABLET 17.2 MG PO (20:21)
[2024-06-04 20:22] VITALS: BP 129/60
[2024-06-04] MEDS: Gabapentin 400 MG CAPSULE 800 MG PO (20:22)
[2024-06-04] MEDS: Acetaminophen 325 MG TABLET 650 MG PO (20:27)
[2024-06-05 07:39] VITALS: BP 146/67; PULSE 66; RESP 20; TEMP 36.6; O2SAT 94
[2024-06-05] MEDS: Furosemide 20 MG TABLET PO ×2 (07:40→20:58)
[2024-06-05] MEDS: Tamsulosin HCL 0.4 MG CAPSULE PO (07:41)
[2024-06-05] MEDS: Ferrous Sulfate 324 MG TABLET.DR PO (07:41)
[2024-06-05] MEDS: DULoxetine HCl 20 MG CAPSULE.DR PO ×2 (07:41→21:02)
[2024-06-05] MEDS: clonazePAM 0.5 MG TABLET PO ×2 (07:41→21:00)
[2024-06-05] MEDS: Divalproex Sodium Sprinkles 125 MG CAP.DR.SPR 500 MG PO ×2 (07:42→21:00)
[2024-06-05] MEDS: Lidocaine 4 % Patch ADH..PATCH 1 PATCH TRANSDERMA (10:40)
[2024-06-05] MEDS: Acetaminophen 325 MG TABLET 650 MG PO (15:27)
[2024-06-05 20:00] VITALS: BP 130/63; PULSE 74; RESP 16; TEMP 36.4; O2SAT 97
[2024-06-05 20:58] VITALS: BP 130/63
[2024-06-05] MEDS: Melatonin 3 MG TABLET 6 MG PO (20:59)
[2024-06-05] MEDS: Atorvastatin Calcium 10 MG TABLET PO (21:00)
[2024-06-05] MEDS: Gabapentin 400 MG CAPSULE 800 MG PO (21:02)
--- NOTE | 2024-06-05 22:43 | HO.PSYCHPN ---
Subjective Subjective Date of Service: 06/05/24 Reason For Visit: Major neurocognitive d/o Subjective Notes: Conditional Voluntary Interim History: Pt slept through the night. Pt reports doing well but does not like the food here. No inappropriate behaviors. He is taking medications as prescribed. plan to dc this week. Review of Systems Review of Systems I feel fine Mental Status Exam Mental Status Exam Narrative: Appearance: wearing hospital gown, fair hygiene, arms with tatooes, in NAD Behavior: cooperative Psychomotor: no agitation or retardation, no tremors Speech: mostly clear, normal rate/rhythm/volume, spontaneous TP: mostly linear TC: feeling tired Mood: good Affect: congruent SI: denies HI: denies VH/AH: none Delusions: none Insight/judgment: impaired x 2. Memory/cog: alert, oriented to month, year, date, but not situation. He can't provide much information about events leading to this admission, nor medical hx. Diagnostics Vital Signs (24Hr): Vital Signs - 24 hr 06/05/24 07:39 06/05/24 20:58 Temperature 97.9 F Pulse Rate 66 Respiratory Rate 20 Blood Pressure 146/67 H 130/63 Pulse Oximetry 94 Oxygen Delivery Method Room Air BMI result Body Mass Index 26.8 Labs 05/28/24 18:33 Medications Medications Current Medications Acetaminophen (Acetaminophen 325 Mg Tablet) 650 mg PO Q6H PRN PRN Reason: Headache/Pain, Scale 1-10 Last Admin: 06/05/24 15:27 Dose: 650 mg Al Hydroxide/Mg Hydroxide (Magnesium Hydrox/Alum Hydrox 30 Ml Oral.Susp) 30 ml PO Q6H PRN PRN Reason: Heartburn/Nausea Last Admin: 05/31/24 20:13 Dose: 30 ml Atorvastatin Calcium (Atorvastatin Calcium 10 Mg Tablet) 10 mg PO BEDTIME [facility] Last Admin: 06/05/24 21:00 Dose: 10 mg Clonazepam (Clonazepam 0.5 Mg Tablet) 0.5 mg PO BID [facility] Last Admin: 06/05/24 21:00 Dose: 0.5 mg Divalproex Sodium (Divalproex Sodium Sprinkles 125 Mg Cap.) 500 mg PO BID [facility] Last Admin: 06/05/24 21:00 Dose: 500 mg Duloxetine HCl (Duloxetine Hcl 20 Mg Capsule.) 20 mg PO BID [facility] Last Admin: 06/05/24 21:02 Dose: 20 mg Ferrous Sulfate (Ferrous Sulfate 324 Mg Tablet.) 324 mg PO DAILY [facility] Last Admin: 06/05/24 07:41 Dose: 324 mg Furosemide (Furosemide 20 Mg Tablet) 20 mg PO BID [facility]; Protocol Last Admin: 06/05/24 20:58 Dose: 20 mg Gabapentin (Gabapentin 400 Mg Capsule) 800 mg PO BEDTIME [facility] Last Admin: 06/05/24 21:02 Dose: 800 mg Lidocaine (Lidocaine 4 % Patch Adh..Patch) 1 patch TRANSDERMA DAILY [facility] Last Admin: 06/05/24 10:40 Dose: 1 patch Magnesium Hydroxide (Milk Of Magnesia 30 Ml Oral.Susp) 30 ml PO DAILY PRN PRN Reason: Constipation Melatonin (Melatonin 3 Mg Tablet) 6 mg PO BEDTIME [facility] Last Admin: 06/05/24 20:59 Dose: 6 mg Nicotine Polacrilex (Nicotine Polacrilex 2 Mg Gum) 2 mg BUCCAL Q2H PRN PRN Reason: Nicotine Cravings Polyethylene Glycol (Polyethylene Glycol 3350 17 Gm Powd.Pack) 17 gm PO DAILY [facility] Last Admin: 06/05/24 08:01 Dose: Not Given Senna (Sennosides 8.6 Mg Tablet) 17.2 mg PO BEDTIME [facility] Last Admin: 06/04/24 20:21 Dose: 17.2 mg Tamsulosin HCl (Tamsulosin Hcl 0.4 Mg Capsule) 0.4 mg PO DAILY [facility] Last Admin: 06/05/24 07:41 Dose: 0.4 mg Trazodone HCl (Trazodone Hcl 50 Mg Tablet) 50 mg PO BEDTIME MRX1 PRN PRN Reason: Insomnia Last Admin: 06/02/24 02:55 Dose: 50 mg Allergies Allergies Allergy/AdvReac Type Severity Reaction Status Date / Time amoxicillin AdvReac Severe Rash Verified 05/30/24 06:08 Assessment & Plan Assessment & Plan (1) Frontotemporal dementia: Status: Acute Code(s): G31.09 - Other frontotemporal neurocognitive disorder; F02.80 - Dementia in other diseases classified elsewhere, unspecified severity, without behavioral disturbance, psychotic disturbance, mood disturbance, and anxiety Plan Mr. Betancur is an 83 year-old male with hx of frontotemporal dementia who resides at [facility] in [facility] since 06/2023. He was sent via EMS to [facility] due to increase inappropriate behaviors and boundaries with female residents. Apparently this behaviors have been increasing in the last week. Discussed with daughter continuing medication including depakote, clonazepam. He received HCP and invocation paperwork. We also obtained copy of MOLST and updated code to DNR/DNI. 05/31 ammonia levels wnl. Increase depakote from 250mg po BID, to 500mg po BID. Verbal consent obtained for CV by HCP. 06/01 continue tx. 06/02 continue tx 06/03 continue tx 06/04 continue tx. will check depakote and ammonia level on 06/06 Reason for continued inpatient stay Substantial Risk for: inability to function Time Spent With Patient Time: Total time managing care of this patient today ____ minutes.
[2024-06-06 07:55] LABS: Ammonia 29 umol/L (13-55)
[2024-06-06 08:50] VITALS: BP 113/55; PULSE 80; RESP 16; TEMP 36.7; O2SAT 96
[2024-06-06] MEDS: DULoxetine HCl 20 MG CAPSULE.DR PO ×2 (09:17→20:04)
[2024-06-06] MEDS: Divalproex Sodium Sprinkles 125 MG CAP.DR.SPR 500 MG PO ×2 (09:18→20:03)
[2024-06-06] MEDS: Furosemide 20 MG TABLET PO ×2 (09:18→20:04)
[2024-06-06] MEDS: clonazePAM 0.5 MG TABLET PO ×2 (09:20→20:04)
[2024-06-06] MEDS: Ferrous Sulfate 324 MG TABLET.DR PO (09:20)
[2024-06-06] MEDS: Tamsulosin HCL 0.4 MG CAPSULE PO (09:20)
[2024-06-06] MEDS: Acetaminophen 325 MG TABLET 650 MG PO ×2 (09:25→20:13)
[2024-06-06] MEDS: traMADoL HCL 50 MG TABLET PO (11:56)
--- NOTE | 2024-06-06 14:40 | P.PNPSI_ITS ---
Subjective Subjective Date of Service: 06/06/24 Reason For Visit: Major neurocognitive d/o Interim History: Pt slept through the night. Pt reports doing well but does not like the food here. No inappropriate behaviors. He is taking medications as prescribed. plan to dc this week. Review of Systems Review of Systems I feel fine Mental Status Exam Mental Status Exam Narrative: Appearance: wearing hospital gown, fair hygiene, arms with tatooes, in NAD Behavior: cooperative Psychomotor: no agitation or retardation, no tremors Speech: mostly clear, normal rate/rhythm/volume, spontaneous TP: mostly linear TC: feeling tired Mood: good Affect: congruent SI: denies HI: denies VH/AH: none Delusions: none Insight/judgment: impaired x 2. Memory/cog: alert, oriented to month, year, date, but not situation. He can't provide much information about events leading to this admission, nor medical hx. Diagnostics Vital Signs (24Hr): Vital Signs - 24 hr 06/05/24 20:00 06/05/24 20:58 06/06/24 08:50 Temperature 97.5 F 98.1 F Pulse Rate 74 80 Respiratory Rate 16 16 Blood Pressure 130/63 130/63 113/55 L Pulse Oximetry 97 96 Oxygen Delivery Method Room Air Room Air BMI result Body Mass Index 26.8 Labs 05/28/24 18:33 Labs: Laboratory Results - last 48 hr 06/06/24 07:18 Ammonia 29 Valproic Acid 60.0 Medications Medications Current Medications Acetaminophen (Acetaminophen 325 Mg Tablet) 650 mg PO Q6H PRN PRN Reason: Headache/Pain, Scale 1-10 Last Admin: 06/06/24 09:25 Dose: 650 mg Al Hydroxide/Mg Hydroxide (Magnesium Hydrox/Alum Hydrox 30 Ml Oral.Susp) 30 ml PO Q6H PRN PRN Reason: Heartburn/Nausea Last Admin: 05/31/24 20:13 Dose: 30 ml Atorvastatin Calcium (Atorvastatin Calcium 10 Mg Tablet) 10 mg PO BEDTIME [facility] Last Admin: 06/05/24 21:00 Dose: 10 mg Clonazepam (Clonazepam 0.5 Mg Tablet) 0.5 mg PO BID [facility] Last Admin: 06/06/24 09:20 Dose: 0.5 mg Divalproex Sodium (Divalproex Sodium Sprinkles 125 Mg ) 500 mg PO BID [facility] Last Admin: 06/06/24 09:18 Dose: 500 mg Duloxetine HCl (Duloxetine Hcl 20 Mg Capsule.) 20 mg PO BID [facility] Last Admin: 06/06/24 09:17 Dose: 20 mg Ferrous Sulfate (Ferrous Sulfate 324 Mg Tablet.) 324 mg PO DAILY [facility] Last Admin: 06/06/24 09:20 Dose: 324 mg Furosemide (Furosemide 20 Mg Tablet) 20 mg PO BID [facility]; Protocol Last Admin: 06/06/24 09:18 Dose: 20 mg Gabapentin (Gabapentin 400 Mg Capsule) 800 mg PO BEDTIME [facility] Last Admin: 06/05/24 21:02 Dose: 800 mg Lidocaine (Lidocaine 4 % Patch Adh..Patch) 1 patch TRANSDERMA DAILY [facility] Last Admin: 06/06/24 09:21 Dose: Not Given Magnesium Hydroxide (Milk Of Magnesia 30 Ml Oral.Susp) 30 ml PO DAILY PRN PRN Reason: Constipation Melatonin (Melatonin 3 Mg Tablet) 6 mg PO BEDTIME [facility] Last Admin: 06/05/24 20:59 Dose: 6 mg Nicotine Polacrilex (Nicotine Polacrilex 2 Mg Gum) 2 mg BUCCAL Q2H PRN PRN Reason: Nicotine Cravings Polyethylene Glycol (Polyethylene Glycol 3350 17 Gm Powd.Pack) 17 gm PO DAILY PRN PRN Reason: constipation Senna (Sennosides 8.6 Mg Tablet) 17.2 mg PO BEDTIME [facility] Last Admin: 06/05/24 23:56 Dose: Not Given Tamsulosin HCl (Tamsulosin Hcl 0.4 Mg Capsule) 0.4 mg PO DAILY [facility] Last Admin: 06/06/24 09:20 Dose: 0.4 mg Trazodone HCl (Trazodone Hcl 50 Mg Tablet) 50 mg PO BEDTIME [facility]X1 PRN PRN Reason: Insomnia Last Admin: 06/02/24 02:55 Dose: 50 mg Allergies Allergies Allergy/AdvReac Type Severity Reaction Status Date / Time amoxicillin AdvReac Severe Rash Verified 05/30/24 06:08 Assessment & Plan Assessment & Plan (1) Frontotemporal dementia: Status: Acute Code(s): G31.09 - Other frontotemporal neurocognitive disorder; F02.80 - Dementia in other diseases classified elsewhere, unspecified severity, without behavioral disturbance, psychotic disturbance, mood disturbance, and anxiety Plan Mr. Betancur is an 83 year-old male with hx of frontotemporal dementia who resides at [facility] since 06/2023. He was sent via EMS to [facility] due to increase inappropriate behaviors and boundaries with female residents. Apparently this behaviors have been increasing in the last week. Discussed with daughter continuing medication including depakote, clonazepam. He received HCP and invocation paperwork. We also obtained copy of MOLST and updated code to DNR/DNI. 05/31 ammonia levels wnl. Increase depakote from 250mg po BID, to 500mg po BID. Verbal consent obtained for CV by HCP. 06/01 continue tx. 06/02 continue tx 06/03 continue tx 06/04 continue tx. will check depakote and ammonia level on 06/06 06/06 depakote level 60, ammonia 29 Reason for continued inpatient stay Substantial Risk for: inability to function Time Spent With Patient Time: Total time managing care of this patient today ____ minutes.
[2024-06-06] MEDS: Gabapentin 300 MG CAPSULE PO (18:01)
[2024-06-06 20:00] VITALS: BP 135/70; PULSE 82; RESP 16; TEMP 36.6; O2SAT 97
[2024-06-06] MEDS: Atorvastatin Calcium 10 MG TABLET PO (20:03)
[2024-06-06] MEDS: Sennosides 8.6 MG TABLET 17.2 MG PO (20:03)
[2024-06-06 20:04] VITALS: BP 175/70
[2024-06-06] MEDS: Gabapentin 400 MG CAPSULE 800 MG PO (20:05)
[2024-06-06] MEDS: Melatonin 3 MG TABLET 6 MG PO (20:05)
[2024-06-07 08:17] VITALS: BP 143/66; PULSE 70; RESP 20; TEMP 36.4; O2SAT 98
[2024-06-07] MEDS: Furosemide 20 MG TABLET PO (08:19)
[2024-06-07] MEDS: Divalproex Sodium Sprinkles 125 MG CAP.DR.SPR 500 MG PO (08:19)
[2024-06-07] MEDS: DULoxetine HCl 20 MG CAPSULE.DR PO (08:20)
[2024-06-07] MEDS: Ferrous Sulfate 324 MG TABLET.DR PO (08:20)
[2024-06-07] MEDS: clonazePAM 0.5 MG TABLET PO (08:20)
[2024-06-07] MEDS: Tamsulosin HCL 0.4 MG CAPSULE PO (08:20)
[2024-06-07] MEDS: Lidocaine 4 % Patch ADH..PATCH 1 PATCH TRANSDERMA (08:31)
--- NOTE | 2024-06-07 08:57 | P.DS_ITS ---
DS: Providers Provider Date of Service: 06/07/24 Date of admission: 05/28/24 17:38 Date of discharge: 06/07/24 Primary care physician: Johnnie Ramos MD Consults: 05/28/24 18:02 Consult to Hospitalist Routine Comment: Consulting Provider: [facility] Hospitalists Reason For Exam: medical H&P Discharging clinician: Ana Paula Adair DS: Diagnosis Discharge Diagnosis (1) Frontotemporal dementia: Status: Acute DS: Medications Discharge Medications Home Medications: Previous Rx's ?Medication ?Instructions ?Recorded atorvastatin 10 mg tablet 10 mg PO BEDTIME #30 tabs 06/07/24 clonazepam 0.5 mg tablet 0.5 mg PO BID #60 tabs 06/07/24 divalproex 125 mg capsule,delayed 500 mg (4 x 125 mg) PO BID #60 caps 06/07/24 release sprinkle duloxetine 20 mg capsule,delayed 20 mg PO BID #60 caps 06/07/24 release ferrous sulfate 324 mg (65 mg 324 mg PO DAILY #30 tabs 06/07/24 iron) tablet,delayed release furosemide 20 mg tablet 20 mg PO BID #60 tabs 06/07/24 gabapentin 400 mg capsule 400 mg PO BID #60 caps 06/07/24 lidocaine 4 % topical patch 1 patch transdermal DAILY #30 ea 06/07/24 (Lidocaine Pain Relief) melatonin 3 mg tablet 6 mg (2 x 3 mg) PO BEDTIME #60 tabs 06/07/24 polyethylene glycol 3350 17 gram 17 g PO DAILY PRN constipation #30 06/07/24 oral powder packet ea sennosides 8.6 mg tablet (Senna 17.2 mg (2 x 8.6 mg) PO BEDTIME 06/07/24 Lax) #60 tabs tamsulosin 0.4 mg capsule 0.4 mg PO DAILY #30 caps 06/07/24 trazodone 50 mg tablet 50 mg PO BEDTIME #30 tabs 06/07/24 Mental Status Exam Mental Status Exam Narrative: Appearance: wearing hospital gown, fair hygiene, arms with tatooes, in NAD Behavior: cooperative Psychomotor: no agitation or retardation, no tremors Speech: mostly clear, normal rate/rhythm/volume, spontaneous TP: mostly linear TC: feeling tired Mood: good Affect: congruent SI: denies HI: denies VH/AH: none Delusions: none Insight/judgment: impaired x 2. Memory/cog: alert, oriented to month, year, date, but not situation. He can't provide much information about events leading to this admission, nor medical hx. Data Data Completed and Pending Completed studies during hospitalization [Text1]: 06/06/24 07:18 Ammonia 29 Valproic Acid 60.0 DS: Summary Hospital Course Hospital Course: Subjective Notes: [facility] Warning and Section 12B Narrative: Mr. Betancur is an 83 year-old male with hx of dementia who resides at [facility] since 06/2024 (according to his daughter). He was sent via EMS to [facility] ED due to patient presenting with increased inappropriate behaviors towards female residents including attempting to touch them inappropriately. In the ED, labs included CBC with macrocytic anemia (note B12 [id number]), no leukocytosis or leukopenia. CMP without electrolyte abnormality, BUN 14, Cr 1.25, creatinine clearance 57, LFT wnl. TSH 2.87. Folate 22.9. UA was negative for UTI. On the unit, pt reports he knows he is at [place]. He does not know why he is here. He initially reported he lives alone with one of his sons living close by. When this senior medical writer mentioned [facility], he did report he was brought here from [facility], but again did not know why. He does know the year, month and date. He is not able to tell this senior medical writer his medical conditions nor the medications he is on. He denies depression or anxious mood. He denies SI/HI. No signs of psychosis or delusions. He reports he has a headache and neck pain. He denies any other concerns. He is able to tell this senior medical writer that his HCP is his daughter, Earline (awaiting copy of HCP from [facility] as it was not sent from ED). Collateral information was gathered from his daughter Earline who reports he was diagnosed with dementia last year around February. She reports he had put smoke detector in microwave and seemed more confused and forgetful. She reports he was admitted to a geriatric unit in [place] and ultimately dx with frontotemporal dementia and was placed at [facility]. He apparently has been stable up until this admission. Daughter reports he does not have hx of psychiatric illness. She also denies he had hx of substance use. No prior suicide attempts nor violent behavior. Past Psychiatric History: Inpt: [facility] 02/2023 HOSPITAL COURSE On the unit, pt was admitted on a sect 12b. He presented as pleasant and cooperative. He was not oriented to situation and events leading to this admission were not clear to him. He denied SI/HI. He did not show signs of psychosis or delusional content. he denied inappropriate physical touch to female residents at [facility]. He did express desire to meet a significant other. His HCP was contacted and updated on his presentation. We also discussed risks, benefits and alternative treatment options, including increasing depakote from 250mg po BID to 500mg po BID to help with impulsive sexualized behaviors. We decrease gabapentin to 800mg/day divided in two doses due to decrease creatinine clearance and avoid over sedation with increase in depakote. He does have chronic neck and back pain which is severe. He used lidocaine patch and tylenol in addition to gabapentin. His affect was bright. He was sleeping through the night. He was eating well although did not like the food here. He was visible on the unit. He was mostly on his own. He did not show any signs of aggression towards self or others. He did not show any sexualized inappropriate behaviors. There were no incidences of disruptive behaviors nor need for restraints. Depakote levels week after dose adjustment were 60. Ammonia was normal at 29. Status at Discharge Cognitive/behavioral status at discharge: Pt with brighter, non labile affect. No SI/HI. No psychosis or delusional content. No aggression towards self or others. Functional status at discharge: independent ambulation Overall status at discharge: patient is back to baseline Time Spent with Patient Time attestation: Total time managing care of this patient today _40___ minutes. Time spent: Greater than 30 minutes Discharge Plan Discharge Anticipated Discharge Date/Time: 06/07/24 08:41 Patient Disposition: Home, Self-Care Discharge Diagnosis: Frontotemporal Dementia Referrals: [facility] [Outside] - 06/07/24 11:00 am (You will return to [facility] tomorrow at 11:00 AM.) Discharge Medications: New tamsulosin 0.4 mg Capsule 0.4 mg PO DAILY Qty: 30 0RF ferrous sulfate 324 mg (65 mg iron) Tablet,Delayed Release (Dr/Ec) 324 mg PO DAILY Qty: 30 0RF polyethylene glycol 3350 17 gram Powder In Packet 17 g PO DAILY PRN (Reason: constipation) Qty: 30 0RF atorvastatin 10 mg Tablet 10 mg PO BEDTIME Qty: 30 0RF clonazepam 0.5 mg Tablet 0.5 mg PO BID Qty: 60 0RF gabapentin 400 mg Capsule 400 mg PO BID Qty: 60 0RF furosemide 20 mg Tablet 20 mg PO BID Qty: 60 0RF Protocol: Hold for SBP< HOLD for SBP < : 90 divalproex 125 mg Capsule, Delayed Rel Sprinkle 500 mg PO BID Qty: 60 0RF duloxetine 20 mg Capsule,Delayed Release(Dr/Ec) 20 mg PO BID Qty: 60 0RF sennosides [Senna Lax] 8.6 mg Tablet 17.2 mg PO BEDTIME Qty: 60 0RF melatonin 3 mg Tablet 6 mg PO BEDTIME Qty: 60 0RF lidocaine [Lidocaine Pain Relief] 4 % Adhesive Patch,Medicated 1 patch transdermal DAILY Qty: 30 0RF Continued trazodone 50 mg Tablet 50 mg PO BEDTIME Qty: 30 0RF Discontinued sennosides [senna] 8.6 mg Tablet 17.2 mg PO BEDTIME polyethylene glycol 3350 17 gram Powder In Packet 17 g PO DAILY atorvastatin 10 mg Tablet 10 mg PO BEDTIME clonazepam 0.5 mg Tablet 0.5 mg PO BID gabapentin 400 mg Capsule 800 mg PO BEDTIME melatonin 3 mg Tablet 6 mg PO BEDTIME pantoprazole 20 mg Tablet,Delayed Release (Dr/Ec) 20 mg PO DAILY tamsulosin 0.4 mg Capsule 0.4 mg PO DAILY ferrous sulfate 325 mg (65 mg iron) Tablet 325 mg PO DAILY lidocaine 5 % Adhesive Patch,Medicated 1 patch TOPICAL DAILY Rx Instructions: leave on most painful area for up to 12 hrs gabapentin 300 mg Capsule 600 mg PO BID furosemide 20 mg Tablet 20 mg PO BID divalproex [Depakote Sprinkles] 125 mg Capsule, Delayed Rel Sprinkle 250 mg PO BID enoxaparin 40 mg/0.4 mL Syringe 40 mg SUBCUT DAILY duloxetine 20 mg Capsule,Delayed Release(Dr/Ec) 20 mg PO BID Discharge Orders: Discharge Order (Routine); Ordered 06/07/24 Ordered By: Ana Paula Adair Diet: Regular diet Activity on Discharge: As tolerated Stand Alone Forms: Patient Portal Discharge page Print Language: Romanian Care Plan Goals: 1. Maintain mood 2. no aggression towards self or others Health Concerns: 1. follow up with PCP for routine care Plan of Treatment: 1. take medications as prescribed 2. go to nearest ED or call 911 in event of emergency Assessment: Pt with brighter, non labile affect. No SI/HI. No psychosis or delusions.sleeping and eating well. no aggression towards self or others. Discharge Date/Time: 06/07/24 12:10
== END 2024-06-07 12:10 | disposition home or self-care (01) | DRG 57 ==
PROVIDERS: Admitting Provider Social Worker; PCP Internal Medicine; Visit Provider Social Worker
DX: G31.09 Other frontotemporal neurocognitive disorder (principal); F02.80 Dementia in other diseases classified elsewhere, unspecified severity, without behavioral disturbance, psychotic disturbance, mood disturbance, and anxiety; I25.10 Atherosclerotic heart disease of native coronary artery without angina pectoris; K21.9 Gastro-esophageal reflux disease without esophagitis; D50.9 Iron deficiency anemia, unspecified; N40.0 Benign prostatic hyperplasia without lower urinary tract symptoms; Z87.891 Personal history of nicotine dependence; Z79.899 Other long term (current) drug therapy
CPT/HCPCS: 36415; 80053; 80061; 80164; 82140; 82607; 83036; 84443

== ENCOUNTER → 2024-05-28 17:38 | Outpatient (BNV) | payer MEDICARE, MEDICAID, SELFPAY | PROVIDERS: Admitting Provider Social Worker; PCP Internal Medicine; Visit Provider Social Worker | DX: G31.09 Other frontotemporal neurocognitive disorder (principal); F02.80 Dementia in other diseases classified elsewhere, unspecified severity, without behavioral disturbance, psychotic disturbance, mood disturbance, and anxiety | CPT/HCPCS: 90792; 99231; 99232; 99239 ==

== ENCOUNTER → 2024-05-28 17:38 | Outpatient (BNV) | payer MEDICARE, MEDICAID, SELFPAY | PROVIDERS: Admitting Provider Social Worker; PCP Internal Medicine; Visit Provider Physician Assistant | DX: G31.09 Other frontotemporal neurocognitive disorder (principal); F02.80 Dementia in other diseases classified elsewhere, unspecified severity, without behavioral disturbance, psychotic disturbance, mood disturbance, and anxiety; Z00.00 Encounter for general adult medical examination without abnormal findings | CPT/HCPCS: 99222 ==